=== PATIENT | female | born 1960 | race Caucasian/White ===

== ENCOUNTER 2016-06-07 16:51 | Emergency (ER) | payer SELFPAY ==
[2016-06-07 17:35] LABS: BASOPHIL 0.3 % (0-2); EOSINOPHIL 0.8 % (0-5); HCT 40.1 % (37.0-47.0); HGB 12.8 g/dl (12.5-16.0); MCH 25.8 pg (25.0-31.0); MCHC 31.9 g/dL (32.0-36.0); MCV 80.8 fL (78.0-100.0); MONOCYTE 3.7 % (0-12); MPV 10.1 fL (6.0-9.5); NEUTROPHIL 66.2 % (41-80); PLT 346 K/uL (150-400); RBC 4.96 M/uL (4.20-5.40); RDW 14.9 % (11.5-14.0); WBC 8.9 K/uL (4.0-10.5)
[2016-06-07 17:56] LABS: CREATININE 0.4 mg/dL (0.5-1.0); MAGNESIUM 2.18 mg/dL (1.40-2.10); POTASSIUM 3.7 mmol/L (3.5-5.1)
[2016-06-07 18:16] LABS: BILIRUBIN NEGATIVE (NEGATIVE); BLOOD NEGATIVE Ery/uL (NEGATIVE); CLARITY CLEAR (CLEAR); COLOR YELLOW (YELLOW); GLUCOSE (U) NORMAL (NORMAL); KETONE (U) NEGATIVE (NEGATIVE); LEUKOCYTES NEGATIVE Leu/uL (NEGATIVE); NITRITE NEGATIVE (NEGATIVE); PROTEIN NEGATIVE (NEGATIVE); UROBILINOGEN 0.2 mg/dL (0.2-1.0)
== END 2016-06-07 19:34 | disposition home or self-care (01) ==
LOC: FER 16:51
PROVIDERS: Emergency Medicine
DX: R42 Dizziness and giddiness (principal); R29.701 NIHSS score 1; E11.9 Type 2 diabetes mellitus without complications
CPT/HCPCS: 36415; 70450; 71010; 80048; 81003; 83735; 84100; 85025; 93005

== ENCOUNTER 2020-04-26 08:10 | Emergency (ER) | payer OTHER ==
[~2020-04-26 08:10] MED LIST: BASAGLAR K100 UNIT/1 SC; CLARITIN10 MG PO; CLONAZEPAM0.5 MG PO; EFFEXOR XR75 MG PO; ESTRADIOL0.5 MG PO; HYZAAR 100-251 EACH PO; LIPITOR40 M1 PO; METFORMIN HCL500 MG PO; VICTOZA 2-0.6 MG/0.1 SC; VITAMIN D250 MCG PO
[2020-04-26] MEDS ORDERED: MOBIC15 MG PO (09:52)
== END 2020-04-26 10:02 | disposition home or self-care (01) ==
LOC: FER 08:10
DX: R04.0 Epistaxis (principal); I10 Essential (primary) hypertension; M47.816 Spondylosis without myelopathy or radiculopathy, lumbar region; E11.9 Type 2 diabetes mellitus without complications
CPT/HCPCS: 72131; C9046

== ENCOUNTER 2020-04-29 09:05 | Emergency (ER) | payer OTHER ==
[~2020-04-29 09:05] MED LIST changes: +MOBIC15 MG PO
[2020-04-29 10:32] LABS: BASOPHIL 0.8 % (0-2); EOSINOPHIL 0.9 % (0-5); HCT 36.2 % (37.0-47.0); HGB 11.2 g/dl (12.5-16.0); LYMPHOCYTE 31.2 % (15-48); MCH 25.7 pg (25.0-31.0); MCHC 30.9 g/dL (32.0-36.0); MONOCYTE 4.2 % (0-12); MPV 10.9 fL (6.0-9.5); NEUTROPHIL 62.6 % (41-80); NRBC 0; RBC 4.36 M/uL (4.20-5.40); RDW 15.5 % (11.5-14.0); WBC 6.4 K/uL (4.0-10.5)
[2020-04-29 10:37] LABS: INR 0.9 (0.9-1.2); PROTHROMBIN TIME 11.5 SECONDS (11.4-13.6); PTT 21.6 SECONDS (22.2-34.7)
[2020-04-29 11:06] LABS: PLT 275 K/uL (150-400)
== END 2020-04-29 11:32 | disposition home or self-care (01) ==
LOC: FER 09:05
PROVIDERS: Emergency Medicine
DX: R04.0 Epistaxis (principal); I10 Essential (primary) hypertension; E11.9 Type 2 diabetes mellitus without complications; Z79.82 Long term (current) use of aspirin
CPT/HCPCS: 36415; 85025; 85610; 85730; 99283

== ENCOUNTER 2020-05-30 15:52 | Emergency (ER) | payer OTHER | END 2020-05-30 18:13 | disposition home or self-care (01) | LOC: FER 15:52 | DX: R04.0 Epistaxis (principal); E11.9 Type 2 diabetes mellitus without complications; I10 Essential (primary) hypertension; Z79.82 Long term (current) use of aspirin; Z79.899 Other long term (current) drug therapy; Z79.84 Long term (current) use of oral hypoglycemic drugs ==